=== PATIENT | male | born 1980 | race Caucasian/White ===

== ENCOUNTER 2022-02-04 15:36 | Outpatient (REF) | payer OTHER, SELFPAY ==
[2022-02-04 14:12] LABS: Hemoglobin A1C 5.7 % (<5.7)
[2022-02-04 14:21] LABS: Anion Gap 7.6 mmol/L (3-11); BUN 12 mg/dL (7-18); CO2 29.4 mmol/L (21.0-32.0); CREATININE 1.1 mg/dL (0.70-1.30); Calcium 9.7 mg/dL (8.5-10.1); Calculated LDL 265 mg/dL (<100); Chloride 103 mmol/L (98-107); Cholesterol 370 mg/dL (<200); Glucose 86 mg/dL (74-106); HDL Cholesterol 47 mg/dL (40-60); Potassium 4.6 mmol/L (3.5-5.1); Sodium 140 mmol/L (136-145); Triglyceride 293 mg/dL (<150)
== END 2022-02-04 15:37 | disposition home or self-care (01) ==
LOC: NCHCN 15:36
PROVIDERS: Visit Provider Family Medicine
DX: E66.3 Overweight (principal); Z13.1 Encounter for screening for diabetes mellitus; I10 Essential (primary) hypertension; G44.309 Post-traumatic headache, unspecified, not intractable
CPT/HCPCS: 80048; 80061; 83036

== ENCOUNTER 2022-06-08 16:55 | Outpatient (REF) | payer OTHER, SELFPAY ==
[2022-06-08 18:00] LABS: Hemoglobin A1C 5.6 % (<5.7)
[2022-06-08 18:03] LABS: Calculated LDL 179 mg/dL (<100); Cholesterol 260 mg/dL (<200); Glucose 123 mg/dL (74-106); HDL Cholesterol 48 mg/dL (40-60); Triglyceride 165 mg/dL (<150)
== END 2022-06-08 16:56 | disposition home or self-care (01) ==
LOC: NCHCN 16:55
PROVIDERS: Visit Provider Family Medicine
DX: E78.5 Hyperlipidemia, unspecified (principal); R73.09 Other abnormal glucose
CPT/HCPCS: 80061; 82947; 83036

== ENCOUNTER 2023-09-15 16:32 | Outpatient (REF) | payer OTHER, SELFPAY ==
[2023-09-15 15:22] LABS: ALT 36 U/L (16-63); AST 24 U/L (15-37); Alkaline Phosphatase 99 U/L (46-116); BUN 11 mg/dL (7-18); Bilirubin, Total 0.4 mg/dL (0.2-1.0); CREATININE 1.3 mg/dL (0.70-1.30); Calcium 9.3 mg/dL (8.5-10.1); Calculated LDL 212 mg/dL (<100); Chloride 106 mmol/L (98-107); Cholesterol 295 mg/dL (<200); Estimated GFR 70.78 (mL/min/1.73m2); Glucose 109 mg/dL (74-106); HDL Cholesterol 41 mg/dL (40-60); Potassium 4.4 mmol/L (3.5-5.1); Sodium 142 mmol/L (136-145); Total Protein 7.5 g/dL (6.4-8.2); Triglyceride 214 mg/dL (<150)
[2023-09-15 15:32] LABS: Hemoglobin A1C 5.4 % (<5.7)
== END 2023-09-15 16:33 | disposition home or self-care (01) ==
LOC: NCHCN 16:32
PROVIDERS: PCP Family Medicine; Visit Provider Family Medicine
DX: Z00.00 Encounter for general adult medical examination without abnormal findings (principal)
CPT/HCPCS: 80053; 80061; 83036

== ENCOUNTER 2023-11-24 09:09 | Outpatient (REF) | payer OTHER, SELFPAY ==
[2023-11-24 16:28] LABS: ALT 53 U/L (16-63); AST 30 U/L (15-37); Albumin 4.4 g/dL (3.4-5.0); Alkaline Phosphatase 95 U/L (46-116); Anion Gap 10.2 mmol/L (3-11); BUN 14 mg/dL (7-18); Bilirubin, Total 0.6 mg/dL (0.2-1.0); CO2 27.8 mmol/L (21.0-32.0); CREATININE 1.2 mg/dL (0.70-1.30); Calcium 9.3 mg/dL (8.5-10.1); Calculated LDL 79 mg/dL (<100); Chloride 105 mmol/L (98-107); Cholesterol 168 mg/dL (<200); Estimated GFR 77.92 (mL/min/1.73m2); Glucose 109 mg/dL (74-106); HDL Cholesterol 45 mg/dL (40-60); Potassium 4.3 mmol/L (3.5-5.1); Sodium 143 mmol/L (136-145); TSH (W/Ref FT4) 1.87 uIU/mL (0.36-3.74); Total Protein 7.6 g/dL (6.4-8.2); Triglyceride 221 mg/dL (<150)
[2023-11-24 16:34] LABS: Vitamin D 25 Total 19.5 ng/mL (30-100)
== END 2023-11-24 09:10 | disposition home or self-care (01) ==
LOC: NCHCN 09:09
PROVIDERS: PCP Family Medicine; Visit Provider Family Medicine
DX: E78.5 Hyperlipidemia, unspecified (principal); R53.83 Other fatigue; E55.9 Vitamin D deficiency, unspecified
CPT/HCPCS: 80053; 80061; 82306; 84443

== ENCOUNTER 2024-11-01 11:26 | Outpatient (REF) | payer OTHER, SELFPAY ==
[2024-11-01 15:10] LABS: Hemoglobin A1C 5.5 % (<5.7)
[2024-11-01 15:38] LABS: ALT 51 U/L (16-63); AST 31 U/L (15-37); Albumin 4.3 g/dL (3.4-5.0); Alkaline Phosphatase 89 U/L (46-116); Anion Gap 5.4 mmol/L (3-11); BUN 16 mg/dL (7-18); Bilirubin, Total 0.46 mg/dL (0.2-1.0); CO2 31.6 mmol/L (21.0-32.0); CREATININE 1.3 mg/dL (0.70-1.30); Calcium 9.6 mg/dL (8.5-10.1); Calculated LDL 61 mg/dL (<100); Chloride 107 mmol/L (98-107); Cholesterol 129 mg/dL (<200); Estimated GFR 70.34 (mL/min/1.73m2); Glucose 82 mg/dL (74-106); HDL Cholesterol 44 mg/dL (40-60); Potassium 4.7 mmol/L (3.5-5.1); Sodium 144 mmol/L (136-145); Total Protein 7.5 g/dL (6.4-8.2); Triglyceride 124 mg/dL (<150); Vitamin D 25 Total 19.4 ng/mL (30-100)
== END 2024-11-01 11:27 | disposition home or self-care (01) ==
LOC: NCHCN 11:26
PROVIDERS: PCP Family Medicine; Visit Provider Family Medicine
DX: R73.03 Prediabetes (principal); Z00.00 Encounter for general adult medical examination without abnormal findings
CPT/HCPCS: 80053; 80061; 82306; 83036